=== PATIENT | male | born 1995 | race Caucasian/White ===

== ENCOUNTER 2022-10-14 13:33 | Outpatient (CLI) | payer OTHER, SELFPAY ==
--- NOTE | 2022-10-14 13:51 | ECHO_ITS ---
Patient Info Name: Eduin Shell Age: 27 years : 1995 Gender: Male Ht: 72 in Wt: 190 lbs BSA: 2.10 m2 HR: 61 bpm BP: 148 / 83 mmHg Technical Quality: Good Exam Date: 10/14/2022 2:07 PM Exam Location: [facility] Patient Status: Outpatient Admit Date: 10/14/2022 Staff Ordering Physician: Kd Gold PA-C Eyelet Operator: Will Lewis RDCS, RT Attending Provider: Kd Gold PA-C Referring Physician: Asif ETIENNE; Exam Type: CA echo doppler color flow Study Info Indications R00.2 - Palpitations Complete two-dimensional, color flow and Doppler transthoracic echocardiogram is performed. Strain analysis performed. Summary 1. Complete two-dimensional, color flow and Doppler transthoracic echocardiogram is performed. 2. Left ventricular chamber dimension is normal. 3. Left ventricular systolic function is normal, estimated at 60-65%. 4. The left ventricular diastolic function is normal. 5. E/e' 5 is not elevated. 6. Global longitudinal strain is normal at -17.8%. Left Ventricle E/e' 5 is not elevated. Global longitudinal strain is normal at -17.8%. Left ventricular chamber dimension is normal. Left ventricular systolic function is normal, estimated at 60-65%. The left ventricular diastolic function is normal. Right Ventricle Right ventricular systolic function is normal and with normal TAPSE 1.8 cm. Right ventricular chamber dimension is normal. Left Atria Left atrial chamber dimension is normal. Right Atria Right atrial chamber dimension is normal. Aortic Valve The aortic valve is trileaflet. There is no aortic valve stenosis. There is no aortic valve regurgitation. Pulmonic Valve There is no pulmonic regurgitation. Mitral Valve There is no mitral valve stenosis. There is no mitral valve regurgitation. Tricuspid Valve There is no tricuspid valve regurgitation. Pericardium/Pleural There is no pericardial effusion. Inferior Vena Cava Normal inferior vena cava with >50% collapse upon inspiration consistent with normal right atrial pressure, 5 mmHg. Aorta The aortic root size at the sinus of Valsalva is normal. Left Ventricular Outflow Tract Name Value Normal LVOT 2D LVOT Diameter 2.0 cm LVOT Doppler LVOT Peak Gradient 3 mmHg LVOT Mean Gradient 2 mmHg LVOT VTI 16 cm LVOT VTI/AV VTI Ratio 0.8 LVOT Stroke Volume 50 ml LVOT CO 3.4 l/min LVOT CI 1.6 l/min/m2 Mitral Valve Name Value Normal MV Doppler MV Decel [place] 523 cm/s2 MV PHT 44 ms MV Area (PHT) 5.0 cm2 4.0-5.0 MV Diasto
== END 2022-10-14 13:34 | disposition home or self-care (01) ==
PROVIDERS: PCP Family Medicine; Visit Provider Physician Assistant
DX: R00.2 Palpitations (principal)
CPT/HCPCS: 93306

== ENCOUNTER 2022-10-14 13:35 | Outpatient (CLI) | payer OTHER, SELFPAY ==
--- NOTE | ~2022-10-14 | CT_ITS ---
EXAMINATION: CT abdomen pelvis wo con DATE: 10/14/2022 15:10 INDICATION: Vasovagal cramping. Heart palpitations. TECHNIQUE: Computed tomography (CT) of the abdomen and pelvis was performed without intravenous contr ast. Automated exposure control and iterative reconstruction technique were employed. The dose-length product was 413.58 mGy-cm. COMPARISON: None. FINDINGS: The visualized portions of the lung bases are clear without pneumonia or pleural effusion. There are small bilateral posterior diaphragmatic hernias containing fat. The heart size is normal. N o pericardial effusion. The liver, gallbladder, spleen, pancreas, adrenal glands, and kidneys are nor mal. There is no urolithiasis. There are no dilated loops of bowel. The appendix is normal. There are no pathologically enlarged lymph nodes. There is no free intraperitoneal fluid. There is mild lumbar spondylosis. IMPRESSION: 1. No etiology for the patient's symptoms. Reviewed, dictated and finalized at location [facility]
== END 2022-10-14 13:36 | disposition home or self-care (01) ==
PROVIDERS: PCP Family Medicine; Visit Provider Family Medicine
DX: R10.9 Unspecified abdominal pain (principal)
CPT/HCPCS: 74176

== ENCOUNTER 2023-01-17 16:39 | Emergency (ER) | payer OTHER, SELFPAY ==
--- NOTE | 2023-01-17 17:00 | ED.EYEPROB ---
HPI - Eye Problem General Chief complaint: Eye Problems Stated complaint: rt eye injury Time Seen by Provider: 01/17/23 17:00 Source: patient Mode of arrival: ambulatory Limitations: no limitations History of Present Illness HPI Narrative: Mr. Shell is a 27-year-old male patient presenting to the clinic today with complaints of a right eye injury that occurred prior to arrival. He reports he has picking up sticks and doing some yd work when he walked past a tree and a branch was pulled back and the branch smacked him in the right eye. States he is having blurry vision and pain in the right eye currently. Is having a lot of tearing and difficulty keeping his eye open due to sensitivity of light. Related Data Allergies Allergy/AdvReac Type Severity Reaction Status Date / Time No Known Allergies Allergy Verified 01/17/23 17:09 Review of Systems Review of Systems: Pertinent positives per HPI. Patient denies any fever, chills, rash, headache, visual changes, dizziness, cough, shortness of breath, chest pain, palpitations, nausea, vomiting, diarrhea, constipation, abdominal pain, or any urinary issues. [facility] Family History Family History Father Testicular cancer Social History Social History Social History: Current Caffeine intake- 2 cups cola/tea daily Patient former smoker, still currently using chewing tobacco. Years smoked: 10 Smoking status: Former smoker Smokeless tobacco user: chewing tobacco Smoking end date: 10/05/18 Alcohol intake: current Alcohol use details: SOCIALLY Substance use type: does not use Lack of Transportation: No Lack of Food: Never True Current Housing: I Have Housing Concerned About Future Housing: No Difficulty Paying Gas/Electric Bills: No Difficulty Paying for Meds: No Currently Unemployed: No Education: Trade/Vocational Certificate Difficulty w/ Childcare or Family Care: No Living arrangements: with family Occupation/Education: occupation Additional occupation/education comments: [employer] ([employer]) Gender identity (if verbalized by the patient): Male Sexual Orientation (if Verbalized by the Patient): Straight or Heterosexual Spiritual care concerns: No Agree to blood products: Yes Comments At the time of my signature, I reviewed and agree with the nursing past medical, surgical, social, and family history. There is no relevant family history pertinent to the patient complaint. Exam Narrative: General: Well-developed, well nourished, in no apparent distress Head: Normocephalic, atraumatic Eyes: Pupils equally round and reactive to light bilaterally, EOM intact, left sclera and conjunctive clear, right sclera and conjunctiva injected clear watery discharge from the right eye, left lids normal, right lids mildly swollen, Wood's lamp exam performed and shows a large corneal abrasion over the visual field of the right eye as well as some blood streaking between the globe and the iris of the right eye Ears: TMs intact and clear, ear canals clear, no drainage, grossly hearing normal. Nose: Nares patent, no discharge, no inflammation, no sinus tenderness. Mouth: Oral pharynx without lesions or masses, good dentition, MMM. Neck: Supple, trachea midline, no enlargement of anterior or posterior cervical nodes, no thyroid masses or goiter palpable. Cardio: Regular rate and rhythm, s1 and s2 normal, no murmur appreciated. Resp: Clear to auscultation bilaterally, no rhonchi, rales, wheezing or rubs Course Course Emergency Course: Portions of this record may have been created with voice recognition software. Level of Care: Express Care Visit Vital Signs Vital signs: Vital Signs Temperature 36.5 C 01/17/23 17:08 Pulse Rate 57 L 01/17/23 17:08 Respiratory Rate 18 01/17/23 17:08 Blood Pressure 125/58 L 01/17/23 1
[2023-01-17 17:08] VITALS: BP 125/58; PULSE 57; RESP 18; TEMP 36.5; O2SAT 100
== END 2023-01-17 19:10 | disposition short-term general hospital (02) ==
PROVIDERS: Emergency Provider Nurse Practitioner Family; PCP Family Medicine
DX: S05.01XA Injury of conjunctiva and corneal abrasion without foreign body, right eye, initial encounter (principal); W22.8XXA Striking against or struck by other objects, initial encounter; Y93.H9 Activity, other involving exterior property and land maintenance, building and construction; F17.220 Nicotine dependence, chewing tobacco, uncomplicated
CPT/HCPCS: 99213; A9270; G0463

== ENCOUNTER 2025-09-11 11:59 | Emergency (ER) | payer OTHER, SELFPAY ==
[2025-09-11 12:13] VITALS: BP 143/82; PULSE 75; RESP 16; TEMP 36.9; O2SAT 99
--- NOTE | 2025-09-11 12:56 | ED_ITS ---
HPI - URI/Sore Throat General Chief Complaint: Upper Respiratory Infection Stated Complaint: cough/sore throat Time Seen by Provider: 09/11/25 12:30 Source: patient, RN notes reviewed and old records reviewed Mode of arrival: ambulatory Limitations: no limitations History of Present Illness HPI Narrative: 30 year old male presents to [facility] care with complaints of sore throat since last night, has had positive exposure to strep from family member with complaints of painful swallowing voiced. Patient reports no fevers, chills or sweats, denies any nausea or vomiting has had episode of diarrhea. Patient reports some cough and some nasal drainage denies any known fevers. MD elicited complaint: cough and sore throat Onset (ago): day(s) (since last night) Pain scale (0-10): 6 Able to tolerate fluids by mouth: Yes Exacerbating factors: swallowing Treatments prior to arrival: none Related Data Allergies Allergy/AdvReac Type Severity Reaction Status Date / Time No Known Allergies Allergy Verified 09/11/25 12:38 Review of Systems Review of Systems: CONSTITUTIONAL: reports malaise, no chills, sweats, or fever. EYES: Denies visual changes, redness, or discharge. ENT: Reports rhinorrhea, congestion, no sinus pain,no otalgia and +sore throat. CARDIOVASCULAR: Denies chest pain, palpitations, or edema. RESPIRATORY: Reports cough.? Denies dyspnea. GASTROINTESTINAL: Denies abdominal pain, nausea, vomiting,+ diarrhea SKIN: Denies rash or itching. MUSCULOSKELETAL: Denies myalgia. NEUROLOGIC: Denies headache. All systems reviewed & are unremarkable except as noted in HPI and below PMFSH Past Medical History Medical History Strep throat Family History Family History Father Testicular cancer Social History Social History Social History: Current Caffeine intake- 2 cups cola/tea daily Patient former smoker, still currently using chewing tobacco. Years smoked: 10 Smoking status: Light tobacco smoker Smokeless tobacco user: chewing tobacco Smoking end date: 10/05/18 Additional smoking assessment comments: uses nicotine pouches Alcohol intake: current Drinks per week: 12 Substance use: current Substance use type: marijuana Lack of Transportation: No Lack of Food: Never True Current Housing: I Have Housing Concerned About Future Housing: No Difficulty Paying Gas/Electric Bills: No Difficulty Paying for Meds: No Currently Unemployed: No Education: Trade/Vocational Certificate Difficulty w/ Childcare or Family Care: No Living arrangements: with family Occupation/Education: occupation Additional occupation/education comments: [employer] ([employer]) Gender identity (if verbalized by the patient): Male Sexual Orientation (if Verbalized by the Patient): Straight or Heterosexual Spiritual care concerns: No Agree to blood products: Yes Comments At time of signature, agree with nursing past medical, surgical, social and family history. There is no relevant family history pertinent to the presenting complaint Exam Narrative: GENERAL: Well-appearing, well-nourished, and in no acute distress. HEAD: Normocephalic EYES: PERRLA, conjunctivae clear ENT: Nares clear, turbinates edematous and erythematous, clear discharge. Mucous membranes moist. TM pearly romo with dull light reflex bilaterally; no tragal tenderness. Oropharynx erythematous without lesions. Tonsils red and enlarged and without exudate, no drooling, + hoarseness, no trismus, uvula midline. NECK: Supple.+ lymphadenopathy CHEST: Clear to auscultation, breath sounds equal. No wheezing, rhonchi, rales, or stridor. No respiratory distress, speaks in full sentences.SAo2 99% on room air HEART: Regular rate and rhythm. No murmur heard. SKIN: Warm, dry, no rash. NEURO: Alert and oriented x3. PSYCH: Normal mood and affect Course Course Level of Care: Express Care Visit Vital Signs Vital signs: Vital Signs Temperature 36.9 C 09/11/25 12:13 Pulse Rate 75 09/11/25 12:13 Respiratory Rate 16 09/11/25 12:13 Blood Pressure 143/82 H 09/11/25 12:13 Pulse Oximetry 99 09/11/25 12:13 Oxygen Delivery Room Air 09/11/25 12:13 Temperature 36.9 C 09/11/25 12:13 Pulse Rate 75 09/11/25 12:13 Respiratory Rate 16 09/11/25 12:13 Blood Pressure 143/82 H 09/11/25 12:13 Pulse Oximetry 99 09/11/25 12:13 Oxygen Delivery Room Air 09/11/25 12:13 [facility] Narrative Medical decision making narrative: 30 year old male with complaints of sore throat with positive strep exposure from family member with patient having red swollen tonsils, negative strep test with culture sent. Will treat with antibiotic and if culture is negative patient can decide if he wishes to stop or complete antibiotic.Patient is agreeable to plan of care. Anticipatory guidance and reasons to seek care in ED reviewed with understanding voiced. Differential Diagnosis Differential Diagnosis: Differential diagnostic considerations for upper respiratory infection include upper respiratory infection, croup, otitis media, sinusitis, viral infection, bronchitis, influenza, pharyngitis, strep, uvulitis.? Lab Data [facility] Lab Attestation statement: I personally reviewed the patient's lab results. Lab results narrative: strep screen negative, culture sent Labs: Lab Results 09/11/25 Range/Units 12:21 POC Grp A Strep Screen Negative (Negative) reviewed Critical Care Time Critical Care Time Critical Care Time: No Discharge Plan Discharge Clinical Impression: Exposure to group A Streptococcus Acute pharyngitis Qualifiers: Pharyngitis/tonsillitis etiology: unspecified etiology Qualified Code(s): J02.9 - Acute pharyngitis, unspecified Patient Disposition: Home Condition: Stable Instructions: Antibiotic Form, Pharyngitis (ED) Additional Instructions: . Take the entire course of antibiotics. Throw away your current toothbrush and begin using a new toothbrush in 48 hours in order to prevent re-infection. Sanitize all reusable water bottles . Do not share items with others. Salt water gargles may alleviate some of the throat discomfort. You can take Tylenol or ibuprofen per the package instructions for pain/fever. will treat empirically due to exposure and symptoms culture will be sent if negative you will be notified you can decide to stop antibiotics at that time or if you prefer to continue to complete medicine If your symptoms persist, change or worsen significantly before you can contact your personal physician then please, without delay, go to the emergency department for further evaluation. Follow-up with PCP in 7-10 days or sooner if needed Follow up with PCP soon in regards to your blood pressure which is elevated above threshold for referral. Blood pressure above 120/80 may indicate pre- hypertension. 143/82 Patient Language: Argentine Prescriptions: New amoxicillin 500 mg capsule 1,000 mg PO Q12H 10 Days Qty: 40 0RF Follow-up/Referrals: Tirso Taylor MD [Primary Care Provider, Family Practice] Stand Alone Forms: Work/School Release IP Time of Disposition: 13:02 Quality [place] Coma Scale Eyes: Open Verbal: Oriented and Alert Motor: Follows Commands Kendrick Coma Total Score: 15
[2025-09-11 13:02] LABS: EDSTREPNEGPOS1 Negative (Negative)
== END 2025-09-11 13:10 | disposition home or self-care (01) ==
PROVIDERS: Emergency Provider Registered Nurse; PCP Family Medicine
DX: J02.9 Acute pharyngitis, unspecified (principal); Z20.818 Contact with and (suspected) exposure to other bacterial communicable diseases; F17.220 Nicotine dependence, chewing tobacco, uncomplicated
CPT/HCPCS: 87081; 87880; 99213; G0463